=== PATIENT | female | born 1990 | race African-American/Black ===

== ENCOUNTER 2023-09-01 19:54 | Emergency (ER) | payer SELFPAY ==
[~2023-09-01] VITALS: Ht 165.1 cm; Wt 82.8 kg
[2023-09-01 19:59] VITALS: PULSE 101
[2023-09-01 20:11] VITALS: BP 119/96; RESP 15
== END 2023-09-01 22:00 | disposition left against medical advice (07) ==
LOC: ER 19:54
DX: N94.89 Other specified conditions associated with female genital organs and menstrual cycle (principal); Z53.21 Procedure and treatment not carried out due to patient leaving prior to being seen by health care provider
CPT/HCPCS: 99281